=== PATIENT | male | born 1980 ===

== ENCOUNTER → 2024-10-30 | Outpatient (CLI) | payer OTHER ==
[~2024-10-30] MED LIST: CIPR500 PO; FEXPSEER; Flomax0.4 MG PO; HYDACE5 PO; HYDR1TAB94 PO; IBUP600 PO; KETO10 PO; METPRE4DP PO; Mobic7.5 MG PO; NAPR500 PO; OXYACE5T PO; Percocet 10-321 EACH PO; Percocet 5-3251 EACH PO; Zofran Odt8 MG SL
== END | disposition home or self-care (01) ==
LOC: LAB SHORT 18:44 → LAB 18:44
DX: L02.01 Cutaneous abscess of face (principal)
CPT/HCPCS: 87070; 87077; 87186; 87205